=== PATIENT | female | born 1965 | race Caucasian/White ===

== ENCOUNTER 2021-01-31 01:38 | Day surgery (SDC) | payer BC, SELFPAY ==
[2021-01-30 10:27] VITALS: BMI 18.3
[2021-01-31] VITALS (8 sets, daily range): BP systolic 105–117; BP diastolic 57–78; PULSE 67–82; RESP 10–16; TEMP 36.3–36.9; O2SAT 98–100
--- NOTE | 2021-01-31 12:58 | WPDANESEPPF ---
Anes - Initial Pre Proc Eval Procedure: Operation Date: 01/31/21 15:00 Proposed Procedures p Open Repair Incarcerated Ventral Hernia With Possible Mesh - Rigo Rdz DO Date/Time: 01/31/21 12:58 Surgeon: Rigo Rdz DO Pre Op Diagnosis: Incarcerated Ventral Hernia, umbilical Hernia Patient Data Age: 55 Gender: F Height: 1.7 m Weight: 53.07 kg Allergies Allergy/AdvReac Type Severity Reaction Status Date / Time Penicillins Allergy Severe Difficulty Verified 01/30/21 10:26 Breathing soybean Allergy Unknown Anaphylactic Verified 01/28/21 13:34 Shock Home Medications Medication Instructions Recorded Confirmed Type albuterol sulfate 90 mcg/actuation 2 inh INHALATION Q4H PRN 01/28/21 01/30/21 History aerosol inhaler budesonide-formoterol HFA 160 2 puff INHALATION Q12H 01/28/21 01/30/21 History mcg-4.5 mcg/actuation aerosol inhaler conjugated estrogens 0.3 mg tablet 0.3 mg PO DAILY 01/28/21 01/30/21 History dexamethasone 0.75 mg tablet 0.75 mg PO DAILY 01/28/21 01/30/21 History erenumab-aooe 140 mg/mL 140 mg SUBCUT MONTHLY PRN 01/28/21 01/30/21 History subcutaneous auto-injector fludrocortisone 0.1 mg tablet 0.1 mg PO DAILY 01/28/21 01/30/21 History levothyroxine 50 mcg capsule 50 mcg PO DAILY 01/28/21 01/30/21 History potassium chloride 20 mEq oral 20 meq PO DAILY 01/28/21 01/30/21 History packet sucralfate 1 gram tablet 1 g PO Q6H tablet 01/28/21 01/30/21 History teriparatide 20 mcg/dose (620 20 mcg SUBCUT DAILY 01/28/21 01/30/21 History mcg/2.48 mL) subcutaneous pen injector topiramate 100 mg capsule,extended 100 mg PO DAILY 01/28/21 01/30/21 History release 24 hr Patient hx anesthesia problems: none Family hx anesthesia problems: none PMFSH Past Medical History Medical History (Updated 01/31/21 @ 12:58 by Jose Enrique Cuevas DO) Asthma Mitral valve prolapse Paulina syndrome Thyroid disease Surgical History Surgical History (Updated 01/28/21 @ 13:28 by Nette Roberts) S/P S/P cholecystectomy S/P hysterectomy Family History Family History (Updated 01/28/21 @ 13:29 by Nette Roberts) Father Cancer Mother Ovarian cancer Sibling Diabetes mellitus Ovarian cancer Unknown Diabetes mellitus Social History Social History (Updated 01/28/21 @ 13:30 by Nette Roberts) Smoking status: Never smoker Alcohol intake: never Substance use type: does not use Living arrangements: with family Brnadys - Evnatalie Final PreProcedure Day of Procedure 01/31/21 12:58 Patient weight: thin Heart: regular rate and rhythm Lungs: clear to auscultation and normal air movement Airway: Mallampati scale class II Neurological: alert and oriented Last oral intake: >/= 8 hours ASA classification: III Emergent: no Anesthetic plan: proceed Anesthesia type and monitoring: general ETT and standard monitoring Informed Consent: The patient's anesthetic plan and its attendant risks and benefits were discussed with the patient/family/POA. Questions were solicited and answers provided to the satisfaction of the patient/family/POA.
[2021-01-31] MEDS: LACTATED RINGERS 1,000 ML 30 ML IV CONT ×2 (13:30→16:23)
[2021-01-31] MEDS: ACETAMINOPHEN 500 MG TABLET 1000 MG PO (13:49)
--- NOTE | 2021-01-31 13:53 | ECG_ITS ---
Measurements Intervals [place] Rate: 66 P: 81 SD: 131 QRS: 88 QRSD: 89 T: 9 QT: 408 QTc: 429 Interpretive Statements SINUS RHYTHM DELAYED PRECORDIAL R/S TRANSITION BORDERLINE ST-T WAVE ABNORMALITY- ANTEROLAT/INF LEADS BORDERLINE ECG Electronically Signed On 01-31-2021 15:57:50 CDT by Phill Holden D.O.
[2021-01-31] MEDS: KETOROLAC 15 MG/ML VIAL (*BKC) IV PUSH (14:09)
--- NOTE | 2021-01-31 14:47 | WPDHPUPDATE1 ---
History and Physical Update Update Date/Time: 01/31/21 14:47 History and Physical has been reviewed, including an updated exam of the patient. There are NO changes in the patient's condition. Risks, benefits, and alternatives have been discussed and questions answered. Patient agrees to proceed with procedure.
[2021-01-31] MEDS: CLINDAMYCIN 900 MG/D5W 50 ML 900 MG/50 ML PIGGYBACK 50 MG IVPB (15:29)
[2021-01-31] MEDS: BUPIVACAINE/EPINEPHRINE 0.5% 30 ML VIAL INFILTRATE (16:06)
--- NOTE | 2021-01-31 16:14 | W.PM.PROC2 ---
Procedure Note - Detailed Date of Procedure 01/31/21 Pre-op Diagnosis Incarcerated Ventral Hernia, reducible umbilical Hernia Post-op Diagnosis same Procedure Performed 1. Incarcerated ventral hernia repair 2. Umbilical hernia repair Surgeon Rigo Rdz, DO Anesthesia general and local ( 0.5% bupivacaine with epinephrine local) Indications This is a 55-year-old woman who presented with gradually worsening abdominal pain and an enlarging bulge just above her umbilicus for the past 5-6 weeks. She states that this started out as a small knot that she noted just above her umbilicus, but over the past several weeks this has become larger and more painful. Now she cannot push the bulge back in. She does state that she has been having some problems with her bowels moving. She denies any nausea or vomiting. On exam she was found to have an incarcerated hernia about 3 cm superior to the umbilicus. She also had a small reducible hernia at her umbilicus. Discussions were made with the patient about treatment options and decision was made to proceed with incarcerated ventral hernia repair with possible mesh. Findings Incarcerated ventral hernia repair was performed. The patient was found to have a 1 cm ventral hernia located about 3 cm superior to the umbilicus. This was incarcerated with preperitoneal fat. There did not appear to be any bowel involved. The patient also had about a 5 mm umbilical hernia defect. The 2 hernias were just far enough apart that I did not feel that we could place a mesh easily through the open incision that would overlap each of these hernias wide enough. Since both hernias were very small and spaced out by about 3 cm, I chose to repair each hernia primarily using 0 Ethibond [id number] sutures. The incarcerated hernia sac from the ventral hernia was excised and sent to the lab for pathology. Description of Procedure Procedure as well as risks, benefits, and alternatives were discussed with the patient. Written consent was obtained and placed in chart prior to procedure. Patient was brought back to surgical suite. She was placed supine on operating table. Time-out was done to confirm patient and procedure. She was then intubated by the Anesthesia Department. Her abdomen was prepped and draped in sterile fashion using chlorhexidine prep. 0.5% bupivacaine with epinephrine was infiltrated locally around the location of the incarcerated ventral hernia. A 4 cm transverse incision was made directly over the hernia about 3 cm superior to the umbilicus using a 15 blade scalpel. Electrocautery was used for hemostasis and for dissection down through Shelbi's fascia. The hernia sac was identified and was carefully cleared circumferentially using electrocautery. The hernia sac was dissected all the way down to the level of the fascia. The hernia sac was inspected and appeared to contain preperitoneal fat. The hernia sac was therefore transected at the level of the fascia using electrocautery. It was then sent to the lab for pathology. The hernia defect was measured and this measured about 1 cm transversely by about 0.5 cm vertically. I then carefully inspected just inferior to this. There did appear to be a small 5 mm umbilical hernia defect. The subcutaneous space was dissected caudally using electrocautery from our original incision to dissect down to the level of the umbilical hernia defect. The umbilical stalk was dissected off of the fascia with electrocautery. The hernia defect was then inspected and appeared to be about 5 mm wide and was only containing small amount of preperitoneal fat. Decision was made to close this hernia primarily with 0 Ethibond [id number] sutures. Three sutures were placed transversely to approximate the fascia. I then also closed the ventral hernia defect using 0 Ethibond [id number] sutures. Again 3 sutures were placed transversely to approximate the fascia. Each hernia was car
[2021-01-31] MEDS: fentaNYL CITRATE INJ (*CRX) 100 MCG/2 ML VIAL 25 MCG IV PUSH ×8 (16:45→18:11)
[2021-01-31] MEDS: oxyCODONE HCL (*CRX) 5 MG TAB IR PO (17:45)
== END 2021-01-31 18:18 | disposition home or self-care (01) ==
PROVIDERS: Referring Provider Obstetrics & Gynecology; Visit Provider Surgery
PROC: 0WQF0ZZ Repair Abdominal Wall, Open Approach (ICD-10-PCS; CPT 49561; principal; 2021-01-31 15:00)
DX: K43.6 Other and unspecified ventral hernia with obstruction, without gangrene (principal); K42.9 Umbilical hernia without obstruction or gangrene; J45.909 Unspecified asthma, uncomplicated; E23.0 Hypopituitarism; E07.9 Disorder of thyroid, unspecified; I34.1 Nonrheumatic mitral (valve) prolapse; Z79.51 Long term (current) use of inhaled steroids
CPT/HCPCS: 49561; 49585; 88302; 93005; A9270; C9290; J0330; J1720; J1885; J2250; J2405; J2704; J3010; J7120

== ENCOUNTER 2023-02-24 14:47 | Emergency (ER) | payer BC, SELFPAY ==
[2023-02-24 14:48] VITALS: BP 170/104; PULSE 104; RESP 16; TEMP 36.1; O2SAT 96
--- NOTE | 2023-02-24 15:48 | PC.NURSE ---
pt left d/t wait time, stated she didn't want to wait all night explained rooming process to the pt. remained unhappy with explanation left with , exhibited steady gait
== END 2023-02-24 16:03 | disposition left against medical advice (07) ==
LOC: ANHED 15:55
DX: E27.2 Addisonian crisis (principal)
CPT/HCPCS: 99199